=== PATIENT | female | born 1990 | race Two or more races ===

== ENCOUNTER 2020-06-20 16:27 | Emergency (ER) | payer SELFPAY ==
[~2020-06-20] VITALS: Ht 165.1 cm; Wt 90.9 kg
[2020-06-20 18:10] VITALS: BP 110/70
--- NOTE | 2020-06-20 18:18 | PHYS DOC ---
General Adult EDM: Chief Complaint: LACERATION/AVULSION HPI: HPI: Patient is a 29 year old female who presents for evaluation of laceration to right thumb. Cut on a pizza cutter--- length 2cm. Bleeding controlled Td Review of Systems: Review of Systems: Constitutional: Denies fever or chills. [] Eyes: Denies change in visual acuity. [] HENT: Denies nasal congestion or sore throat. [] Respiratory: Denies cough or shortness of breath. [] Cardiovascular: Denies chest pain or edema. [] GI: Denies abdominal pain, nausea, vomiting, bloody stools or diarrhea. [] : Denies dysuria. [] Musculoskeletal: Denies back pain or joint pain. [] Integument: Denies rash. [positive laceration] Neurologic: Denies headache, focal weakness or sensory changes. [] Endocrine: Denies polyuria or polydipsia. [] Lymphatic: Denies swollen glands. [] Psychiatric: Denies depression or anxiety. [] Heart Score: Risk Factors: Risk Factors: DM, Current or recent (<one month) smoker, HTN, HLP, family history of CAD, obesity. Risk Scores: Score 0 - 3: 2.5% MACE over next 6 weeks - Discharge Home Score 4 - 6: 20.3% MACE over next 6 weeks - Admit for Clinical Observation Score 7 - 10: 72.7% MACE over next 6 weeks - Early Invasive Strategies Current Medications: Current Medications Medications (Trade) Dose Ordered Sig/Ilda Start Time Stop Time Status Last Admin Dose Admin Tetracaine/ Epinephrine/ Lidocaine (Let (Vmuw-Bufirll-Enejd) Gel) 3 ml 1X ONCE 06/20/20 18:15 06/20/20 18:16 UNV Physical Exam: PE: Constitutional: Well developed, well nourished, no acute distress, non-toxic appearance. [] HENT: Normocephalic, atraumatic, bilateral external ears normal, oropharynx moist, no oral exudates, nose normal. [] Eyes: PERRLA, EOMI, conjunctiva normal, no discharge. [] Neck: Normal range of motion, no tenderness, supple, no stridor. [] Cardiovascular:Heart rate regular rhythm, no murmur [] Lungs & Thorax: Bilateral breath sounds clear to auscultation [] Abdomen: Bowel sounds normal, soft, no tenderness, no masses, no pulsatile masses. [] Skin: Warm, dry, no erythema, no rash. [] Back: No tenderness, no CVA tenderness. [] Extremities: No tenderness, no cyanosis, no clubbing, ROM intact, no edema. [] Neurologic: Alert and oriented X 3, normal motor function, normal sensory function, no focal deficits noted. [] Psychologic: Affect normal, judgement normal, mood normal. [] EKG: EKG: [] Radiology/Procedures: Radiology/Procedures: [] Course & Med Decision Making: Course & Med Decision Making Pertinent Labs and Imaging studies reviewed. (See chart for details) []Let applied for anesthesia right laceration thumb repaired with 6.0 nylon 3 simple interrupted. no complications. Loan Disclaimer: Loan Disclaimer: This electronic medical record was generated, in whole or in part, using a voice recognition dictation system. Departure Departure Impression: Primary Impression: Laceration Disposition: 01 HOME, SELF-CARE Condition: STABLE Patient Instructions: Facial Laceration Justicifation of Admission Dx: Justifications for Admission: Justification of Admission Dx: N/A MARIE FORBES DO Jun 20, 2020 18:18
[2020-06-20] MEDS ORDERED: LIDOCAINE/EPI/TETRACAINE TOPICAL GEL 3 ML. TP ONE (18:45)
== END 2020-06-20 19:20 | disposition home or self-care (01) ==
LOC: ER 16:27
DX: S61.011A Laceration without foreign body of right thumb without damage to nail, initial encounter (principal); W26.8XXA Contact with other sharp object(s), not elsewhere classified, initial encounter; Y93.89 Activity, other specified; Y92.89 Other specified places as the place of occurrence of the external cause; Y99.8 Other external cause status
CPT/HCPCS: 12001; 99283